=== PATIENT | male | born 1955 | race African-American/Black ===

== ENCOUNTER 2019-11-11 10:02 | Inpatient (IN) | payer OTHER ==
[2019-11-11] MEDS ORDERED: morphine CARPU-JECT 4 MG/1 ML DISP.SYRIN IVPUSH ONE (10:52)
[2019-11-11] MEDS ORDERED: SODIUM CHLORIDE 0.9% 500 ML INFUS.BAG IV ONE (10:52)
[2019-11-11] MEDS ORDERED: morphine SULFATE 4 MG/ML VIAL ONE (11:02)
--- NOTE | 2019-11-11 11:13 | PDOC ---
History of Present Illness - General Chief Complaint: Pain, Acute Stated Complaint: ABD PAIN Time Seen by Provider: 11/11/19 10:15 History Source: Patient Exam Limitations: No Limitations - History of Present Illness Initial Comments: 11/11/19 11:11 64-year-old male history of hypertension, bilateral inguinal hernia repairs over 10 years ago presents complaining of periumbilical pain since 9 AM yesterday. Denies trauma, fever, chills, nausea, vomiting, diarrhea, chest pain, shortness of breath, back pain, urinary complaints, recent travel, recent sick contacts or any other complaints. Reports a small bowel movement yesterday, patient is passing gas. Patient has not taken anything for pain. PMD Dr. Porfirio Cardenas. ROS: as above PE: GENERAL: well-appearing, NAD HEAD: NCAT EYES: Pupils equal, round and reactive to light, sclera anicteric, conjunctiva clear ENT: pharynx: no erythema, no exudate, uvula midline NECK: supple CHEST: nontender RESP: clear, no w/r/r CARDIO: rrr, no m/g/r ABD: +BS, soft, nontender, mild abdominal distention, no rebound, no guarding BACK: no midline spinal ttp, no CVAT EXTREMITIES: Normal range of motion, no edema NEUROLOGICAL: Normal speech, normal gait SKIN: Warm, Dry Is this a multiple visit Asthma Patient?: No Past History - Medical History Allergies/Adverse Reactions: Allergies Allergy/AdvReac Type Severity Reaction Status Date / Time No Known Allergies Allergy Verified 11/11/19 11:14 Home Medications: Ambulatory Orders Aspirin 81 mg PO DAILY 12/13/17 Losartan/Hydrochlorothiazide 12/13/17 Nifedipine [Nifedipine ER] 60 mg PO DAILY 12/13/17 COPD: No - Psycho-Social/Smoking History Smoking History: Never smoked Have you smoked in the past 12 months: No Information on smoking cessation initiated: No - Substance Abuse Hx (Audit-C & DAST Scrn) How often the patient has a drink containing alcohol: Monthly or less Number of drinks the patient has on a typical day: 1 or 2 How often the patient has six or more drinks on one occasion: Less than monthly Score: In Men: 4 or > Positive; In Women: 3 or > Positive: 2 Screen Result (Pos requires Nsg. Audit-10AR): Negative In the last yr the pt used illegal drug/Rx for NonMed reason: No Score: Yes response is considered Positive: 0 Screen Result (Positive result requires Nsg. DAST-10): Negative *Physical Exam - Vital Signs Last Vital Signs Temp Pulse Resp BP Pulse Ox 98.6 F 86 16 176/97 H 99 11/11/19 10:03 11/11/19 10:03 11/11/19 10:03 11/11/19 10:03 11/11/19 10:03 ED Treatment Course - LABORATORY CBC & Chemistry Diagram: 11/11/19 10:55 11/11/19 10:55 - RADIOLOGY Radiology Studies Ordered: Category Date Time Status ABDOMEN & PELVIS CT WITH CONTR [CT] Stat CT Scan 11/11/19 10:52 Ordered Medical Decision Making - Medical Decision Making 11/11/19 11:13 64-year-old male history of hypertension, bilateral inguinal hernia repairs over 10 years ago presents complaining of periumbilical pain since 9 AM yesterday. Denies trauma, fever, chills, nausea, vomiting, diarrhea, chest pain, shortness of breath, back pain, urinary complaints, recent travel, recent sick contacts or any other complaints. Reports a small bowel movement yesterday, patient is passing gas. Patient has not taken anything for pain. PMD Dr. Porfirio Cardenas. labs IVF analgesia CTAP w/con reassess 11/11/19 12:47 Cr 1.5 cancelled CTAP w/con ordered CTAP w/o con - oral contrast only 11/11/19 16:55 CTAP w/con (po contrast only)- Few dilated loops of distal bowel in the right lower quadrant with collapsed terminal ileum identified distally and possible transition point in right upper quadrant. JEANINE Curran translated for patient and (speak Twi) discussed case with Dr. Elfego vinson test ordered cxr, ecg ordered admit to Dr. Simmons (pmd is Dr. Cardenas) Discharge - Discharge Information Problems reviewed: Yes Clinical Impression/Diagnosis: Abdominal pain Qualifiers: Abdominal location: periumbilical Qualified Code(s): R10.33 - Periumbilical pain Condition: Stable - Admission Yes - Follow up/Referral Referrals: Porfirio Cardenas MD [Primary Care Provider] - - Patient Discharge Instructions - Post Discharge Activity
[2019-11-11 11:22] LABS: BASO % 0.3 % (0-2.0); EOS % 0.8 % (0-4.5); HEMATOCRIT 43.4 % (35.4-49); HEMOGLOBIN 14.2 GM/dL (11.7-16.9); LYMPH % 29.5 % (8-40); MCHC 32.6 g/dl (32.0-35.9); MEAN CELL VOLUME 88.9 fl (80-96); MEAN PLT VOLUME 8.4 fl (7.5-11.1); MONO % 7.5 % (3.8-10.2); NEUT % 61.9 % (42.8-82.8); PLATELET COUNT 256 K/MM3 (134-434); RBC 4.88 M/mm3 (4.00-5.60); RDW 13.7 % (11.9-15.9); WHITE BLOOD COUNT 6.4 K/mm3 (4.0-10.0)
[2019-11-11 11:54] LABS: ALBUMIN 4.6 g/dl (3.4-5.0); BLOOD UREA NITROGEN 17.2 mg/dL (7-18); CALCIUM 10.2 mg/dL (8.5-10.1); CREATININE 1.5 mg/dL (0.55-1.3); MAGNESIUM 2.2 mg/dL (1.8-2.4); POTASSIUM 4.3 mmol/L (3.5-5.1); TOT PROT 8.9 g/dl (6.4-8.2)
[2019-11-11] MEDS ORDERED: MORPHINE SULFATE 2 MG/ML VIAL IVPUSH PRN (22:03)
[2019-11-11] MEDS: DEXTROSE 5%-0.45% SALINE 1,000 ML IV SCH (22:30)
[2019-11-12 02:06] VITALS: BMI 32.8
[2019-11-12 08:39] LABS: BASO % 0.3 % (0-2.0); EOS % 1.7 % (0-4.5); HEMATOCRIT 38.5 % (35.4-49); HEMOGLOBIN 12.6 GM/dL (11.7-16.9); MCHC 32.6 g/dl (32.0-35.9); MEAN PLT VOLUME 8.3 fl (7.5-11.1); MONO % 11.6 % (3.8-10.2); NEUT % 48.4 % (42.8-82.8); PLATELET COUNT 222 K/MM3 (134-434); RBC 4.33 M/mm3 (4.00-5.60); RDW 13.6 % (11.9-15.9); WHITE BLOOD COUNT 3.4 K/mm3 (4.0-10.0)
[2019-11-12 09:17] LABS: ALBUMIN 3.7 g/dl (3.4-5.0); BLOOD UREA NITROGEN 13.1 mg/dL (7-18); CALCIUM 9.1 mg/dL (8.5-10.1); POTASSIUM 3.9 mmol/L (3.5-5.1)
[2019-11-12 09:21] LABS: BILIRUBIN,TOTAL 1.2 mg/dL (0.2-1); TOT PROT 7.3 g/dl (6.4-8.2)
[2019-11-12] MEDS: NIFEdipine E.R 60 MG TABLET PO SCH (11:59)
[2019-11-12] MEDS: ENOXAPARIN NA (PORCINE) 40 MG/0.4 ML DISP.SYRIN SQ SCH (11:59)
[2019-11-12] MEDS: ASPIRIN 81 MG CHEWABLE TABLETS PO SCH (11:59)
--- NOTE | 2019-11-12 12:38 | EKG ---
Test Reason : Blood Pressure : / mmHG Vent. Rate : 071 BPM Atrial Rate : 071 BPM P-R Int : 176 ms QRS Dur : 108 ms QT Int : 394 ms P-R-T Axes : 047 -35 061 degrees QTc Int : 428 ms NORMAL SINUS RHYTHM POSSIBLE LEFT ATRIAL ENLARGEMENT LEFT AXIS DEVIATION LEFT VENTRICULAR HYPERTROPHY ABNORMAL ECG NO PREVIOUS ECGS AVAILABLE Confirmed by ACACIA MCINTYRE MD ([id number]) on 11/12/2019 12:37:46 PM Referred By: Confirmed By:ACACIA MCINTYRE MD
--- NOTE | 2019-11-12 15:55 | HP ---
Admitting History and Physical - Primary Care Physician PCP: Francine Simmons - Admission History of Present Illness: 64-year-old male history of hypertension, bilateral inguinal hernia repairs over 10 years ago presents complaining of periumbilical pain since 9 AM yesterday. Denies trauma, fever, chills, nausea, vomiting, diarrhea, chest pain, shortness of breath, back pain, urinary complaints, recent travel, recent sick contacts or any other complaints. Reports a small bowel movement yesterday, patient is passing gas. Patient has not taken anything for pain. PMD Dr. Porfirio Cardenas. - Past Medical History Cardiovascular: Yes: HTN - Past Surgical History Past Surgical History: Yes: Hernia Repair - Smoking History Smoking history: Never smoked Have you smoked in the past 12 months: No Home Medications - Allergies Allergies/Adverse Reactions: Allergies Allergy/AdvReac Type Severity Reaction Status Date / Time No Known Allergies Allergy Verified 11/11/19 11:14 - Home Medications Home Medications: Ambulatory Orders Aspirin 81 mg PO DAILY 12/13/17 Losartan/Hydrochlorothiazide 12/13/17 Nifedipine [Nifedipine ER] 60 mg PO DAILY 12/13/17 Review of Systems - Review of Systems Gastrointestinal: reports: Abdominal Pain Physical Examination Vital Signs: Vital Signs Temperature 98.1 F 11/12/19 07:42 Pulse Rate 64 11/12/19 07:42 Respiratory Rate 20 11/12/19 09:00 Blood Pressure 146/86 11/12/19 07:42 O2 Sat by Pulse Oximetry (%) 99 11/12/19 09:00 Constitutional: Yes: No Distress HENT: Yes: Atraumatic Neck: Yes: Supple Cardiovascular: Yes: Regular Rate and Rhythm Respiratory: Yes: CTA Bilaterally Gastrointestinal: Yes: Normal Bowel Sounds Extremities: Yes: WNL Neurological: Yes: Alert, Oriented Labs: CBC, BMP 11/12/19 08:17 11/12/19 08:17 Imaging - Results Cat Scan: Report Reviewed Problem List - Problems (1) Abdominal pain Assessment/Plan: had big bm ate plantains 3 days ago hungry ..will wait for surgery clearance Code(s): R10.9 - UNSPECIFIED ABDOMINAL PAIN Qualifiers: Abdominal location: periumbilical Qualified Code(s): R10.33 - Periumbilical pain (2) HTN (hypertension) Assessment/Plan: monitor on meds Code(s): I10 - ESSENTIAL (PRIMARY) HYPERTENSION Assessment/Plan Laboratory Tests 11/11/19 11/11/19 11/11/19 10:55 10:55 10:55 WBC 6.4 RBC 4.88 Hgb 14.2 Hct 43.4 D MCV 88.9 MCH 29.0 MCHC 32.6 RDW 13.7 Plt Count 256 MPV 8.4 Absolute Neuts (auto) 3.9 Neutrophils % 61.9 Lymphocytes % 29.5 D Monocytes % 7.5 Eosinophils % 0.8 Basophils % 0.3 Nucleated RBC % 0 Sodium 139 Potassium 4.3 Chloride 106 Carbon Dioxide 27 Anion Gap 6 L BUN 17.2 Creatinine 1.5 H Est GFR (CKD-EPI)AfAm 56.21 Est GFR (CKD-EPI)NonAf 48.50 Random Glucose 104 Lactic Acid 1.3 Calcium 10.2 H Magnesium 2.2 Total Bilirubin 1.0 AST 29 ALT 48 Alkaline Phosphatase 82 Total Protein 8.9 H Albumin 4.6 COVID-19 (PETRA) 11/11/19 11/12/19 11/12/19 17:21 08:17 08:17 WBC 3.4 L RBC 4.33 Hgb 12.6 Hct 38.5 MCV 89.0 MCH 29.0 MCHC 32.6 RDW 13.6 Plt Count 222 MPV 8.3 Absolute Neuts (auto) 1.7 Neutrophils % 48.4 D Lymphocytes % 38.0 D Monocytes % 11.6 H Eosinophils % 1.7 D Basophils % 0.3 Nucleated RBC % 0 Sodium 139 Potassium 3.9 Chloride 106 Carbon Dioxide 26 Anion Gap 7 L BUN 13.1 Creatinine 1.0 Est GFR (CKD-EPI)AfAm 91.78 Est GFR (CKD-EPI)NonAf 79.19 Random Glucose 94 Lactic Acid Calcium 9.1 Magnesium Total Bilirubin 1.2 H AST 23 ALT 34 Alkaline Phosphatase 70 Total Protein 7.3 Albumin 3.7 COVID-19 (PETRA) Not detected Active Medications Generic Name Dose Route Start Last Admin Trade Name Freq PRN Reason Stop Dose Admin Aspirin 81 mg 11/12/19 10:00 11/12/19 11:59 Asa - PO 81 mg DAILY RHINA Administration Enoxaparin Sodium 40 mg 11/12/19 10:00 11/12/19 11:59 Lovenox - SQ 40 mg DAILY RHINA Administration Dextrose/Sodium Chloride 1,000 mls @ 75 mls/hr 11/11/19 22:15 11/11/19 22:30 D5-1/2ns - IV 75 mls/hr ASDIR RHINA Administration Morphine Sulfate 2 mg 11/11/19 22:03 Morphine Sulfate IVPUSH Q6H PRN PAIN LEVEL 6-10 Nifedipine 60 mg 11/12/19 10:00 11/12/19 11:59 Procardia Xl - PO 60 mg DAILY RHINA Administration COVERING FOR DR SIMMONS TODAY
--- NOTE | 2019-11-12 17:43 | PN ---
Progress Note (short form) - Note Progress Note: surgery pt seen and examined. 64m with b/l open inguinal hernia and ventral hernia repair presented with resolved abd pain after eating unripened plantains [address] shows some dilated distal bowel loops only with compressed ti. large bm today. hungry and wants to go home abd- soft, nt, nd, Plan- full liquids. can d/c if tolerates. stay on liquids until Friday. consider outpt colonoscopy.
--- NOTE | 2019-11-12 18:14 | CONS ---
DATE OF CONSULTATION: DATE OF DICTATION: 11/12/2019 REASON FOR CONSULTATION: Small bowel obstruction. This is an emergency room consultation at the request of the emergency room physician. BRIEF HISTORY: This is a 64-year-old male with history of open bilateral inguinal hernia repair as well as an open ventral hernia repair. States about 3 days ago, he had some unripened plantains that were very hard. He then developed some abdominal pain. Because of this he came into the emergency room, where he had a CAT scan of the abdomen, pelvis which showed us a dilated loop of small bowel in the distal small bowel with collapse from ileum beyond it and nondilated bowel proximal to it. The this could be a mechanical obstruction. He was admitted to the hospital without nasogastric decompression. Today he has had large bowel movement. His symptoms have resolved. PAST MEDICAL HISTORY: Significant for hypertension. PAST SURGICAL HISTORY: As in HPI. SOCIAL HISTORY: Negative for tobacco. ALLERGIES: No known drug allergies. HOME MEDICATIONS: Include: 1. Aspirin. 2. Losartan. 3. Hydrochlorothiazide. 4. Nifedipine. REVIEW OF SYSTEMS: General: Denies fatigue or malaise. Cardiac: Denies chest pain or palpitations. Respiratory: Denies shortness of breath. Gastrointestinal: As in HPI. Currently asymptomatic. Genitourinary: Denies dysuria. Musculoskeletal: Denies joint pain. Psychiatric: Denies anxiety, depression, or hearing voices. PHYSICAL EXAMINATION: General: This is an obese 64-year-old male in no distress. He is afebrile. HEENT: Head is normocephalic. Sclerae anicteric. Neck: Supple. Chest: Clear. Abdomen: Soft. Nontender. He has a small scar under his umbilicus, and he has 2 inguinal hernia scars. He has no obvious masses. He is nontender, not distended. Extremities: No edema. LABORATORY: Review of his laboratory: His white blood cell count is 3.4, hemoglobin is 12, chemistries are unremarkable. COVID test is negative. His CAT scan is as stated in the HPI. He had an abdominal x-ray done today which has not been read by the radiology department. There appears to be some gas-filled colon noted as well as some dilated small bowel. ASSESSMENT: A 64-year-old male with limited surgical history who presents with abdominal pain that is now resolved after eating unripened plantains. Perhaps he had a food impaction in his distal small bowel. The fact that his small bowel was dilated but not proximally does not suggest a complete obstruction or necessarily a mechanical obstruction at all. He has had a large bowel movement. His symptoms have resolved. At this point would not recommend surgical exploration. Will put the patient on a full liquid diet. If he tolerates, he can be discharged. He should stay on liquids until Friday, at which point he can advance his diet. His last colonoscopy was more than 5 years ago, and I recommend he be evaluated for an elective colonoscopy. As long as the patient remains well, no indication for surgery. DO BRE PALMA/[id number]
--- NOTE | 2019-11-12 18:59 | CON.GI ---
Consult Consult Specialty:: GI - History of Present Illness History of Present Illness: 64 y/o male with PMH GB polyp was dooing well until yesterday when he developed periumbilical pain radiating to right lower quadrant. He denies diarrhea, melena and rectala bleeding. CT revealed dialted loops in right lower quadrant. Etiology unclear. Passed flatus today. - Past Medical History Cardio/Vascular: Yes: HTN - Past Surgical History Past Surgical History: Yes: Hernia Repair - Smoking History Smoking history: Never smoked Have you smoked in the past 12 months: No Home Medications - Allergies Allergies/Adverse Reactions: Allergies Allergy/AdvReac Type Severity Reaction Status Date / Time No Known Allergies Allergy Verified 11/11/19 11:14 - Home Medications Home Medications: Ambulatory Orders Aspirin 81 mg PO DAILY 12/13/17 Losartan/Hydrochlorothiazide 12/13/17 Nifedipine [Nifedipine ER] 60 mg PO DAILY 12/13/17 Physical Exam-GI Vital Signs: Vital Signs Temperature 99.5 F 11/12/19 17:13 Pulse Rate 69 11/12/19 17:13 Respiratory Rate 20 11/12/19 17:13 Blood Pressure 141/80 11/12/19 17:13 O2 Sat by Pulse Oximetry (%) 95 11/12/19 17:13 Constitutional: Yes: Well Nourished, Poor Hygeine Eyes: Yes: Occular Prosthesis Neck: Yes: Supple, Tenderness Respiratory: Yes: CTA Bilaterally ...Palpate: Yes: Soft, Tenderness (rlq tenderness). No: Firm/Rigid, Guarding, Hepatomegaly, Mass, Pulsatile Mass, Splenomegaly Labs: CBC, BMP 11/12/19 08:17 11/12/19 08:17 CBC,CMP WBC 3.4 K/mm3 (4.0-10.0) L 11/12/19 08:17 RBC 4.33 M/mm3 (4.00-5.60) 11/12/19 08:17 Hgb 12.6 GM/dL (11.7-16.9) 11/12/19 08:17 Hct 38.5 % (35.4-49) 11/12/19 08:17 MCV 89.0 fl (80-96) 11/12/19 08:17 MCH 29.0 pg (25.7-33.7) 11/12/19 08:17 MCHC 32.6 g/dl (32.0-35.9) 11/12/19 08:17 RDW 13.6 % (11.9-15.9) 11/12/19 08:17 Plt Count 222 K/MM3 (134-434) 11/12/19 08:17 MPV 8.3 fl (7.5-11.1) 11/12/19 08:17 Absolute Neuts (auto) 1.7 K/mm3 (1.5-8.0) 11/12/19 08:17 Neutrophils % 48.4 % (42.8-82.8) D 11/12/19 08:17 Lymphocytes % 38.0 % (8-40) D 11/12/19 08:17 Monocytes % 11.6 % (3.8-10.2) H 11/12/19 08:17 Eosinophils % 1.7 % (0-4.5) D 11/12/19 08:17 Basophils % 0.3 % (0-2.0) 11/12/19 08:17 Nucleated RBC % 0 % (0-0) 11/12/19 08:17 Sodium 139 mmol/L (136-145) 11/12/19 08:17 Potassium 3.9 mmol/L (3.5-5.1) 11/12/19 08:17 Chloride 106 mmol/L (98-107) 11/12/19 08:17 Carbon Dioxide 26 mmol/L (21-32) 11/12/19 08:17 Anion Gap 7 MMOL/L (8-16) L 11/12/19 08:17 BUN 13.1 mg/dL (7-18) 11/12/19 08:17 Creatinine 1.0 mg/dL (0.55-1.3) 11/12/19 08:17 Est GFR (CKD-EPI)AfAm 91.78 11/12/19 08:17 Est GFR (CKD-EPI)NonAf 79.19 11/12/19 08:17 Random Glucose 94 mg/dL (74-106) 11/12/19 08:17 Lactic Acid 1.3 mmol/L (0.4-2.0) 11/11/19 10:55 Calcium 9.1 mg/dL (8.5-10.1) 11/12/19 08:17 Magnesium 2.2 mg/dL (1.8-2.4) 11/11/19 10:55 Total Bilirubin 1.2 mg/dL (0.2-1) H 11/12/19 08:17 AST 23 U/L (15-37) 11/12/19 08:17 ALT 34 U/L (13-61) 11/12/19 08:17 Alkaline Phosphatase 70 U/L (45-117) 11/12/19 08:17 Total Protein 7.3 g/dl (6.4-8.2) 11/12/19 08:17 Albumin 3.7 g/dl (3.4-5.0) 11/12/19 08:17 Imaging - Results Chest X-ray: Report Reviewed Problem List - Problems (1) RLQ abdominal pain Assessment/Plan: associated with low grade temps r/o ocecal diverticultis R> ceftriaxone 1 gram Flagyl clears in am Code(s): R10.31 - RIGHT LOWER QUADRANT PAIN
[2019-11-12] MEDS ORDERED: cefTRIAXone SODIUM 1 GM VIAL ONE (19:38)
[2019-11-12] MEDS ORDERED: DEXTROSE 5%-WATER - 50 ML IVPB ONE (19:38)
[2019-11-12] MEDS: CEFTRIAXONE 1 GM in DEXTROSE 5%-WATER - 50 ML IVPB SCH (19:48)
[2019-11-13] MEDS: DEXTROSE 5%-0.45% SALINE 1,000 ML IV SCH ×2 (01:23→09:43)
--- NOTE | 2019-11-13 07:50 | PN.GI ---
GI Progress Note Subjective: denies any abdominal pain / n/v tolerated liquid diet - Objective Vital Signs: Vital Signs Temperature 98.5 F 11/13/19 06:35 Pulse Rate 74 11/13/19 06:35 Respiratory Rate 18 11/13/19 06:35 Blood Pressure 151/85 11/13/19 06:35 O2 Sat by Pulse Oximetry (%) 96 11/13/19 06:35 Constitutional: Well Nourished, No Distress, Calm Eyes: Yes: WNL HENT: Yes: WNL Neck: Yes: WNL Cardiovascular: Yes: WNL Respiratory: Yes: WNL, Regular, CTA Bilaterally ...Auscultate: Yes: Normoactive Bowel Sounds Extremities: Yes: WNL Edema: No Labs: CBC, BMP 11/12/19 08:17 11/12/19 08:17 Problem List - Problems (1) Abdominal pain Assessment/Plan: ct can reviewed ? resolving sbo ? c/w clear liquid diet ; if continues to improve advance to full liquid diet later today surgery f/u Code(s): R10.9 - UNSPECIFIED ABDOMINAL PAIN Qualifiers: Abdominal location: periumbilical Qualified Code(s): R10.33 - Periumbilical pain
[2019-11-13] MEDS ORDERED: cefTRIAXone SODIUM 1 GM VIAL ONE (09:38)
[2019-11-13] MEDS ORDERED: DEXTROSE 5%-WATER - 50 ML IVPB ONE (09:38)
[2019-11-13] MEDS: ENOXAPARIN NA (PORCINE) 40 MG/0.4 ML DISP.SYRIN SQ SCH (09:44)
[2019-11-13] MEDS: NIFEdipine E.R 60 MG TABLET PO SCH (09:46)
[2019-11-13] MEDS: ASPIRIN 81 MG CHEWABLE TABLETS PO SCH (09:46)
[2019-11-13] MEDS: CEFTRIAXONE 1 GM in DEXTROSE 5%-WATER - 50 ML IVPB SCH (09:46)
[2019-11-13 10:31] VITALS: BP 159/92; PULSE 68; TEMP 97.5
--- NOTE | 2019-11-13 10:34 | PN ---
Progress Note (short form) - Note Progress Note: surgery pt seen and examined. tolerating liquids. abd- soft, nt Plan- surgically stable for d/c on liquids till Friday. no surgical f/u needed.
== END 2019-11-13 14:36 | disposition home or self-care (01) | DRG 247 ==
LOC: JER 10:02 → JERBED 16:45 → J8W 11-12 01:25
PROVIDERS: ADMIT Internal Medicine; ATTEND Internal Medicine
DX: K56.609 Unspecified intestinal obstruction, unspecified as to partial versus complete obstruction (principal); R10.31 Right lower quadrant pain; I10 Essential (primary) hypertension
CPT/HCPCS: 36415; 71046-TC-FY; 74019-TC-FY; 74176-TC; 80053; 83605; 83735; 85025; 93005; 93010; 99285-25; U0003

== ENCOUNTER 2019-11-24 16:11 | Inpatient (IN) | payer OTHER ==
--- NOTE | 2019-11-24 16:21 | PDOC ---
Rapid Medical Evaluation Chief Complaint: Pain Time Seen by Provider: 11/24/19 16:13 Medical Evaluation: Allergies Allergy/AdvReac Type Severity Reaction Status Date / Time No Known Allergies Allergy Verified 11/24/19 16:16 Vital Signs Temp Pulse Resp BP Pulse Ox 98.1 F 68 19 166/136 H 99 11/24/19 16:14 11/24/19 16:14 11/24/19 16:14 11/24/19 16:14 11/24/19 16:14 11/24/19 16:19 CC: no bm since yesterday, + abd distention and very gassy, states was here 2 weeks ago and admitted for the same Exam" + tympany, bs + + distention, elevated BP Plan: ct with po/iv contrast, labs, urine npo Discharge Disposition - Diagnosis Abdominal pain - Referrals - Patient Instructions - Post Discharge Activity
--- NOTE | 2019-11-24 16:23 | PDOC ---
History of Present Illness - General Chief Complaint: Pain Stated Complaint: ABD PAIN/ CONSTIPATION Time Seen by Provider: 11/24/19 16:13 - History of Present Illness Initial Comments: 64 YOM h/o htn, hld, complaining of abdominal pain since yesterday. Patient reports that pain is located diffusely throughout abdomen, 10/10, sharp in quality, since 6pm yesterday after eating, nothing better or worse, has not taken anything. Was here last week for similar sx, received CT abdomen w/ contrast, showed low grade SBO, patient was able to tolerate PO, pain resolved, was able to pass stool and flatus and was dcd. Now returning with same pain. Last BP yesterday morning at 7am, has not passed flatus since this time. No blood in stool, pain or blood with urination, no CP, SOB, NVD, fever, chills, recent sick contacts or recent travel. Constitutional: No Weight Change, No Fever, No Chills, No Night Sweats, No Fatigue, No Malaise ENT/Mouth: No Hearing Changes, No Ear Pain, No Nasal Congestion, No Sinus Pain, No Hoarseness, No sore throat, No Rhinorrhea, No Swallowing Difficulty Eyes: No Eye Pain, No Swelling, No Redness, No Foreign Body, No Discharge, No Vision Changes Cardiovascular: No Chest Pain, No SOB, No PND, No Dyspnea on Exertion, No Orthopnea, No Claudication, No Edema, No Palpitations Respiratory: No Cough, No Sputum, No Wheezing, No Smoke Exposure, No Dyspnea Gastrointestinal: No Nausea, No Vomiting, No Diarrhea, No Constipation, + Pain, No Heartburn, No Anorexia, No Dysphagia, No Hematochezia, No Melena, No Flatulence, No Jaundice Genitourinary: No Dysmenorrhea, No DUB, No Dyspareunia, No Dysuria, No Urinary Frequency, No Hematuria, No Urinary Incontinence, No Urgency, No Flank Pain, No Urinary Flow Changes, No Hesitancy Musculoskeletal: No Arthralgias, No Myalgias, No Joint Swelling, No Joint Stiffness, No Back Pain, No Neck Pain, No Injury History Skin: No Skin Lesions, No Pruritis, No Hair Changes, No Breast/Skin Changes, No Nipple Discharge Neuro: No Weakness, No Numbness, No Paresthesias, No Loss of Consciousness, No Syncope, No Dizziness, No Headache, No Coordination Changes, No Recent Falls Psych: No Anxiety/Panic, No Depression, No Insomnia, No Personality Changes, No Delusions, No Rumination, No SI/HI/AH/VH, No Social Issues, No Memory Changes, No Violence/Abuse Hx., No Eating Concerns Heme/Lymph: No Bruising, No Bleeding, No Transfusions History, No Lymphadenopathy Endocrine: No Polyuria, No Polydipsia, No Temperature Intolerance 11/24/19 17:06 Past History - Medical History Allergies/Adverse Reactions: Allergies Allergy/AdvReac Type Severity Reaction Status Date / Time No Known Allergies Allergy Verified 11/24/19 16:16 Home Medications: Ambulatory Orders Aspirin 81 mg PO DAILY 12/13/17 Losartan/Hydrochlorothiazide 12/13/17 Nifedipine [Nifedipine ER] 60 mg PO DAILY 12/13/17 COPD: No GI Disorders: (hernia) HTN: Yes - Surgical History Abdominal Surgery: Yes (Hernia) - Psycho-Social/Smoking History Smoking History: Never smoked Have you smoked in the past 12 months: No Information on smoking cessation initiated: Yes - Substance Abuse Hx (Audit-C & DAST Scrn) How often the patient has a drink containing alcohol: Never Score: In Men: 4 or > Positive; In Women: 3 or > Positive: 0 Screen Result (Pos requires Nsg. Audit-10AR): Negative In the last yr the pt used illegal drug/Rx for NonMed reason: No Score: Yes response is considered Positive: 0 Screen Result (Positive result requires Nsg. DAST-10): Negative *Physical Exam - Vital Signs Last Vital Signs Temp Pulse Resp BP Pulse Ox 98.1 F 68 19 166/136 H 99 11/24/19 16:14 11/24/19 16:14 11/24/19 16:14 11/24/19 16:14 11/24/19 16:14 ED Treatment Course - LABORATORY CBC & Chemistry Diagram: 11/25/19 06:45 11/25/19 06:45 Medical Decision Making - Medical Decision Making 64 YOM h/o htn, hld, recent partial bowel obstruction presents for abdominal pain - vitals wnl - exam shows protuberant abdomen - CBC, CMP, Lactate, UA, CT w/ contrast reassess: - Patient began vomiting 1.5 hours after drinking oral contrast - emesis brownish in color - placed NG tube, went in on first attempt, advanced 70 cms, immediate return of 300cc fluid 11/24/19 18:38 11/24/19 20:34 patient cr 1.5 patient given 2L ringers lactate for hydration prior to contrast CT Plan to hydrate post study 11/24/19 21:55 - CT reads increased distal small bowel obstruction when compared to exam on 11/11/2019 w/ possible transition zone in RUQ - Patient signed out to night team 11/24/19 21:56 Discharge - Discharge Information Problems reviewed: Yes Clinical Impression/Diagnosis: SBO (small bowel obstruction) Abdominal pain Qualifiers: Abdominal location: upper abdomen, unspecified Qualified Code(s): R10.10 - Upper abdominal pain, unspecified - Follow up/Referral - Patient Discharge Instructions - Post Discharge Activity
[2019-11-24 17:51] LABS: BASO % 0.3 % (0-2.0); EOS % 0.3 % (0-4.5); HEMATOCRIT 42.4 % (35.4-49); HEMOGLOBIN 14.1 GM/dL (11.7-16.9); LYMPH % 13.2 % (8-40); MCH 29.1 pg (25.7-33.7); MCHC 33.2 g/dl (32.0-35.9); MEAN CELL VOLUME 87.5 fl (80-96); MONO % 5.5 % (3.8-10.2); NEUT % 80.7 % (42.8-82.8); PLATELET COUNT 273 K/MM3 (134-434); RBC 4.85 M/mm3 (4.00-5.60); RDW 13.5 % (11.9-15.9)
[2019-11-24 17:58] LABS: INR 1.02 (0.83-1.09)
[2019-11-24 18:01] LABS: ACTIVATED PTT 29.9 SECONDS (25.2-36.5)
[2019-11-24] MEDS ORDERED: PANTOPRAZOLE SODIUM 40 MG VIAL ONE ×2 (18:06→19:54)
[2019-11-24] MEDS ORDERED: ONDANSETRON 4 MG/2 ML VIAL IVPUSH ONE (18:07)
[2019-11-24] MEDS ORDERED: PANTOPRAZOLE SODIUM 40 MG VIAL IVPUSH ONE ×2 (18:07→19:46)
[2019-11-24] MEDS ORDERED: LIDOCAINE HCL 2% JELLY 10 ML CARTRIDGE UR ONE (18:08)
[2019-11-24] MEDS ORDERED: LIDOCAINE VISCOUS 2% ORAL/TOP 100 ML BOTTLE MM ONE (18:13)
--- NOTE | 2019-11-24 18:20 | PDOC ---
Documentation entered by Shira Soriano SCRIBE, acting as scribe for Berta Villa MD. Berta Villa MD: This documentation has been prepared by the Bo zayas Lincy, SCRIBE, under my direction and personally reviewed by me in its entirety. I confirm that the documentation accurately reflects all work, treatment, procedures, and medical decision making performed by me. Attending Attestation - Resident Resident Name: DaliaChidi - ED Attending Attestation I have performed the following: I have examined & evaluated the patient, The case was reviewed & discussed with the resident, I agree w/resident's findings & plan, Exceptions are as noted - HPI HPI: 11/24/19 18:12 64 yo male h/o htn, bilat inguinal hernia repair, recently admitted for bowel obstruction which was managed conservatively, and resolved, earlier this month, here today with c/o abd pain, constipation, x 1 day . c/o right sided abd pain, today noted to be periumbilical. no h/o other abd surgeries. denies dark stool, no melena, no h/o prior cirrhosis or gi bleeds. no f/c no cp no sob. - Physicial Exam PE: 11/24/19 18:16 awake alert lungs clear bilat heart rrr no mrg abd soft mild distended, nontender. no noted hernia. ext wwp. no edema. alert oriented x 3. - Medical Decision Making 11/24/19 18:17 64 yo male h/o htn , prior abd surgery, questionable sbo recently, admitted for sbo managed conservatively, here today c/o constipation abd pain. differential appendictiis recurrent obstruction, gastritis, other infection such as uti, plan ct a/p labs pt ptt. type and screen. pt in department awaiting cta/p given po contgrast. shortly after large amount of bloody, coffee ground emesis. given protonix 40 mg , protonix gtt. ct a/p changed to iv contrast only as unable to tolerate oral contrast. Discharge - Discharge Information Problems reviewed: Yes Clinical Impression/Diagnosis: Abdominal pain - Follow up/Referral Referrals: Porfirio Cardenas MD [Primary Care Provider] - - Patient Discharge Instructions - Post Discharge Activity
[2019-11-24 18:22] LABS: ALBUMIN 4.8 g/dl (3.4-5.0); CALCIUM 10.5 mg/dL (8.5-10.1); CREATININE 1.5 mg/dL (0.55-1.3); MAGNESIUM 2.3 mg/dL (1.8-2.4); TOT PROT 9.2 g/dl (6.4-8.2)
[2019-11-24] MEDS ORDERED: LIDOCAINE HCL 2% JELLY 10 ML CARTRIDGE ONE (18:24)
[2019-11-24] MEDS ORDERED: LACTATED RINGERS SOLUTION 1000 ML INFUS.BAG IV ONE ×3 (18:42→18:45)
[2019-11-24] MEDS ORDERED: ACETAMINOPHEN 1000 MG/100 ML VIAL (NON FORMULARY) IVPB ONE (18:47)
[2019-11-24] MEDS ORDERED: ACETAMINOPHEN INJECTION 100 ML IVPB ONE (18:56)
[2019-11-24 19:15] LABS: EPI CELLS 3 /uL (0-25.1); HYALINE CASTS 1 /uL (0-3.1); URINE APPEARANCE CLEAR; URINE BACTERIA 3 /uL (0-1359); URINE BILIRUBIN 2+ (NEGATIVE); URINE COLOR DK YELLOW; URINE GLUCOSE (UA) NEGATIVE (NEGATIVE); URINE KETONE 1+ (NEGATIVE); URINE LEUK ESTERASE NEGATIVE (NEGATIVE); URINE NITRITE NEGATIVE (NEGATIVE); URINE PROTEIN 1+ (NEGATIVE); URINE RBC 12 /uL (0-23.9); URINE WBC 3 /uL (0-25.8)
[2019-11-24] MEDS: PANTOPRAZOLE SODIUM 80 MG in SODIUM CHLORIDE 100 ML IVPB SCH (20:23)
--- NOTE | 2019-11-24 22:16 | PDOC ---
*Physical Exam - Vital Signs Last Vital Signs Temp Pulse Resp BP Pulse Ox 97.9 F 69 18 167/88 96 11/24/19 19:20 11/24/19 19:20 11/24/19 19:20 11/24/19 19:20 11/24/19 19:20 - Physical Exam 11/24/19 22:13 64M low grade SBO last week - resolved now back w / ABD pain. CT shows larger SBO, transition point @ RUQ. ng tube in. No WBC count. BM yesterday. no flatus. coffee ground emesis after PO contrast. - dry scan now shows increased grade (high grade) SBO. transition point at RUQ. needs surg consult + admission 11/24/19 22:23 ED Treatment Course - LABORATORY CBC & Chemistry Diagram: 11/24/19 17:20 11/24/19 17:20 - ADDITIONAL ORDERS Additional order review: Laboratory Results 11/24/19 11/24/19 11/24/19 18:45 18:25 17:20 PT with INR INR PTT (Actin FS) Sodium Potassium Chloride Carbon Dioxide Anion Gap BUN Creatinine Est GFR (CKD-EPI)AfAm Est GFR (CKD-EPI)NonAf Random Glucose Lactic Acid 1.4 Calcium Magnesium Total Bilirubin AST ALT Alkaline Phosphatase Total Protein Albumin Lipase Urine Color Dk yellow Urine Appearance Clear Urine pH 5.0 Ur Specific [place] 1.031 Urine Protein 1+ H Urine Glucose (UA) Negative Urine Ketones 1+ H Urine Blood Negative Urine Nitrite Negative Urine Bilirubin 2+ H Urine Urobilinogen 1.0 Ur Leukocyte Esterase Negative Urine WBC (Auto) 3 Urine RBC (Auto) 12 Urine Casts (Auto) 1 U Epithel Cells (Auto) 3 Urine Bacteria (Auto) 3 Blood Type O POSITIVE Antibody Screen Negative 11/24/19 11/24/19 17:20 17:20 PT with INR 12.00 INR 1.02 PTT (Actin FS) 29.9 Sodium 140 Potassium 4.0 Chloride 105 Carbon Dioxide 26 Anion Gap 10 BUN 21.0 H Creatinine 1.5 H Est GFR (CKD-EPI)AfAm 56.21 Est GFR (CKD-EPI)NonAf 48.50 Random Glucose 117 H Lactic Acid Calcium 10.5 H Magnesium 2.3 Total Bilirubin 1.0 AST 22 ALT 40 Alkaline Phosphatase 92 Total Protein 9.2 H Albumin 4.8 Lipase 146 Urine Color Urine Appearance Urine pH Ur Specific [place] Urine Protein Urine Glucose (UA) Urine Ketones Urine Blood Urine Nitrite Urine Bilirubin Urine Urobilinogen Ur Leukocyte Esterase Urine WBC (Auto) Urine RBC (Auto) Urine Casts (Auto) U Epithel Cells (Auto) Urine Bacteria (Auto) Blood Type Antibody Screen 11/24/19 17:20 RBC 4.85 MCV 87.5 MCHC 33.2 RDW 13.5 MPV 9.0 Neutrophils % 80.7 D Lymphocytes % 13.2 D Monocytes % 5.5 Eosinophils % 0.3 D Basophils % 0.3 - Medications Given in the ED: ED Medications Discontinued Medications Generic Name Dose Route Start Last Admin Trade Name Freq PRN Reason Stop Dose Admin Acetaminophen 1,000 mg 11/24/19 18:47 11/24/19 18:54 Ofirmev Injection - IVPB 11/24/19 18:48 1,000 mg ONCE ONE Administration Lactated Ringer's 1,000 ml 11/24/19 18:42 11/24/19 19:02 Lactated Ringers Solution IV 11/24/19 18:43 Not Given ONCE ONE Lactated Ringer's 2,000 ml 11/24/19 18:45 11/24/19 18:54 Lactated Ringers Solution IV 11/24/19 18:46 2,000 ml NOW ONE Administration Lactated Ringer's 2,000 ml 11/24/19 18:45 11/24/19 19:02 Lactated Ringers Solution IV 11/24/19 18:46 Not Given NOW ONE Lidocaine HCl 1 ml 11/24/19 18:08 11/24/19 18:34 Xylocaine 2% Uro-Jet UR 11/24/19 18:09 1 ml ONCE ONE Administration Lidocaine HCl 15 ml 11/24/19 18:13 11/24/19 18:35 Xylocaine 2% Viscous MM 11/24/19 18:14 Not Given ONCE ONE Ondansetron HCl 4 mg 11/24/19 18:07 11/24/19 18:18 Zofran Injection IVPUSH 11/24/19 18:08 4 mg ONCE ONE Administration Pantoprazole Sodium 40 mg 11/24/19 18:07 11/24/19 18:18 Protonix Iv IVPUSH 11/24/19 18:08 40 mg ONCE ONE Administration Pantoprazole Sodium 40 mg 11/24/19 19:46 11/24/19 20:10 Protonix Iv IVPUSH 11/24/19 19:47 40 mg ONCE ONE Administration Medical Decision Making - Medical Decision Making 11/25/19 00:[address] Marie for consult (on-call surgeon). -> He requested us to call Dr. Telles (the MD who saw the patient during last admission) -> We called Elfego's office -> no answer and not taking msgs. -> Dr. Simmons called for transition of care and requested we call Dr. Navarrete (Gen Surgeon for consult) -> We called Dr. Navarrete's office (closed until further notice due to COVID-19) -> called Dr. Navarrete's cell phone -> no answer -> left message with request for callback due to patient w/ SBO. Discharge - Discharge Information Problems reviewed: Yes Clinical Impression/Diagnosis: SBO (small bowel obstruction) Abdominal pain Qualifiers: Abdominal location: upper abdomen, unspecified Qualified Code(s): R10.10 - Upper abdominal pain, unspecified - Admission Yes - Follow up/Referral - Patient Discharge Instructions - Post Discharge Activity
[2019-11-25] MEDS ORDERED: ACETAMINOPHEN 1000 MG/100 ML VIAL (NON FORMULARY) IVPB PRN (00:43)
[2019-11-25] MEDS ORDERED: ONDANSETRON 4 MG/2 ML VIAL IVPUSH PRN (00:44)
[2019-11-25] MEDS: LACTATED RINGERS SOLUTION 1,000 ML/1,000 ML INFUS.BAG IV SCH ×2 (01:00→15:30)
[2019-11-25] MEDS ORDERED: LIDOCAINE VISCOUS 2% ORAL/TOP 20 ML UNIT-DOSE CUP ONE (01:55)
[2019-11-25] MEDS ORDERED: PIPERACILLIN/TAZOB 3.375 GM 3.375 GM/50 ML BAG IVPB ONE (01:55)
[2019-11-25] MEDS ORDERED: PIPERACILLIN/TAZOB 3.375 GM 3.375 GM in DEXTROSE 5%-WATER - 50 ML IVPB SCH (02:00)
[2019-11-25] MEDS ORDERED: LIDOCAINE VISCOUS 2% ORAL/TOP 20 ML UNIT-DOSE CUP MM ONE (04:06)
[2019-11-25 04:49] VITALS: BMI 30.1
[2019-11-25] MEDS: PANTOPRAZOLE SODIUM 80 MG in SODIUM CHLORIDE 100 ML IVPB SCH ×3 (07:05→17:05)
[2019-11-25 07:28] LABS: BASO % 0.5 % (0-2.0); HEMATOCRIT 38.6 % (35.4-49); HEMOGLOBIN 12.8 GM/dL (11.7-16.9); MCH 29.2 pg (25.7-33.7); MCHC 33.1 g/dl (32.0-35.9); MEAN CELL VOLUME 88.3 fl (80-96); MEAN PLT VOLUME 9.2 fl (7.5-11.1); MONO % 9.3 % (3.8-10.2); NEUT % 67.2 % (42.8-82.8); PLATELET COUNT 222 K/MM3 (134-434); RBC 4.38 M/mm3 (4.00-5.60); RDW 13.5 % (11.9-15.9); WHITE BLOOD COUNT 6.5 K/mm3 (4.0-10.0)
--- OUTSIDE RECORDS SUMMARY | 2019-11-25 07:33 | XMS ---
:1955 Author Organization [facility] Support Name Relationship Address Phone UE, UNEMPLOYED Unavailable Unavailable Unavailable UE Unavailable Unavailable Unavailable VICENTA BINGHAM [address] [facility] [phone] [place] [address] AGYINJUSTUS SON [address] [place] [address] AGYIN, JUSTUS Child [address] [facility] [place] [address] Re-disclosure Warning The records that you are about to access may contain information from federally- assisted alcohol or drug abuse programs. If such information is present, then the following federally mandated warning applies: This information has been disclosed to you from records protected by federal confidentiality rules (42 CFR part 2). The federal rules prohibit you from making any further disclosure of this information unless further disclosure is expressly permitted by the written consent of the person to whom it pertains or as otherwise permitted by 42 CFR part 2. A general authorization for the release of medical or other information is NOT sufficient for this purpose. The Federal rules restrict any use of the information to criminally investigate or prosecute any alcohol or drug abuse patient.The records that you are about to access may contain highly sensitive health information, the redisclosure of which is protected by Article 27-F of the [facility] Public Health law. If you continue you may haveaccess to information: Regarding HIV / AIDS; Provided by facilities licensed or operated by the [facility] Office of Mental Health; or Provided by the [facility] Office for People With Developmental Disabilities. If such information is present, then the following [facility] mandated warning applies: This information has been disclosed to you from confidential records which are protected by state law. State law prohibits you from making any further disclosure of this information without the specific written consent of the person to whom it pertains, or as otherwise permitted by law. Any unauthorized further disclosure in violation of state law may result in a fine or skilled nursing sentence or both. A general authorization for the release of medical or other information is NOT sufficient authorization for further disclosure. Insurance Providers Payer name Policy type Policy ID Covered Covered constitution party's Policy P olya / Coverage constitution party ID relationship to [employer] Inf ormation type medley [employer] [id number] SP [id number] [employer]ITY [id number] SP [id number] EXCHANGE Results ID Date Data Source [id number] 11/11/2019 05:21:00 PM EDT [facility] Name Value Range Interpretation Description Data Sup porting Code Source(s) Document(s ) SARS [facility] coronavirus 2 RNA This lab was ordered by [facility] and reported by [email or web address]. ID Date Data Source [id number] 08/26/2019 12:00:00 AM EDT [facility] Name Value Range Interpretation Code Description Data Rachel rce(s) Supporting Document(s ) 2019-nCoV [facility] RNA XXX PETRA+probe- Imp This lab was ordered by [facility] and reported by [email or web address]. Procedure
[2019-11-25 08:05] LABS: ALBUMIN 3.8 g/dl (3.4-5.0); BILIRUBIN,TOTAL 1.2 mg/dL (0.2-1); BLOOD UREA NITROGEN 15.1 mg/dL (7-18); CALCIUM 9.1 mg/dL (8.5-10.1); CREATININE 1.2 mg/dL (0.55-1.3); POTASSIUM 3.7 mmol/L (3.5-5.1); TOT PROT 7.5 g/dl (6.4-8.2)
[2019-11-25] MEDS ORDERED: PIPERACILLIN/TAZOBACTAM 3.375 GM VIAL IVPB ONE ×2 (08:17→16:39)
[2019-11-25] MEDS ORDERED: DEXTROSE 5%-WATER - 50 ML IVPB ONE ×2 (08:18→16:39)
--- NOTE | 2019-11-25 08:18 | CON.ID ---
Consult Consult Specialty:: infectious diseases Referred by:: dr saha Reason for Consultation:: sbo - History of Present Illness Chief Complaint: abd pain, History of Present Illness: 64 YOM h/o htn, hld, complaining of abdominal pain since yesterday. Patient reports that pain is located diffusely throughout abdomen, 10/10, sharp in quality, since 6pm yesterday after eating, nothing better or worse, has not taken anything. Was here last week for similar sx, received CT abdomen w/ contrast, showed low grade SBO, patient was able to tolerate PO, pain resolved, was able to pass stool and flatus and was dcd. Now returning with same pain. Last BP yesterday morning at 7am, has not passed flatus since this time. No blood in stool, pain or blood with urination, no CP, SOB, NVD, fever, chills, recent sick contacts or recent travel. was admitted and ng tube was placed patient feels much better now - History Source History Provided By: Patient Limitations to Obtaining History: No Limitations - Past Medical History Cardio/Vascular: Yes: HTN - Past Surgical History Past Surgical History: Yes: Hernia Repair - Smoking History Smoking history: Never smoked Have you smoked in the past 12 months: No Home Medications - Allergies Allergies/Adverse Reactions: Allergies Allergy/AdvReac Type Severity Reaction Status Date / Time No Known Allergies Allergy Verified 11/24/19 16:16 - Home Medications Home Medications: Ambulatory Orders Aspirin 81 mg PO DAILY 12/13/17 Losartan/Hydrochlorothiazide 12/13/17 Nifedipine [Nifedipine ER] 60 mg PO DAILY 12/13/17 Review of Systems - Review of Systems Constitutional: reports: No Symptoms Eyes: reports: No Symptoms HENT: reports: No Symptoms Neck: reports: No Symptoms Cardiovascular: reports: No Symptoms Respiratory: reports: No Symptoms Gastrointestinal: reports: Abdominal Pain, Bloating, Other Genitourinary: reports: No Symptoms Musculoskeletal: reports: No Symptoms Integumentary: reports: No Symptoms Neurological: reports: No Symptoms Endocrine: reports: No Symptoms Hematology/Lymphatic: reports: No Symptoms Psychiatric: reports: No Symptoms Physical Exam Vital Signs: Vital Signs Temperature 97.8 F 11/25/19 03:20 Pulse Rate 60 11/25/19 03:20 Respiratory Rate 17 11/25/19 04:50 Blood Pressure 165/88 11/25/19 03:20 O2 Sat by Pulse Oximetry (%) 99 11/25/19 04:50 Constitutional: Yes: Well Nourished, Calm, Mild Distress Eyes: Yes: Conjunctiva Clear, EOM Intact HENT: Yes: Atraumatic, Normocephalic Neck: Yes: Supple, Trachea Midline Cardiovascular: Yes: Regular Rate and Rhythm Respiratory: Yes: Regular, CTA Bilaterally Gastrointestinal: Yes: Soft, Distention, Other (absent bowel sounds,ng tube in place) Musculoskeletal: Yes: WNL Extremities: Yes: WNL Neurological: Yes: Alert, Oriented Psychiatric: Yes: Alert, Oriented Labs: CBC, BMP 11/25/19 06:45 11/25/19 06:45 Imaging - Results Chest X-ray: Report Reviewed, Image Reviewed Cat Scan: Report Reviewed, Image Reviewed Assessment/Plan patient coming in with sbo surgery going to see the patient continue npo ng tube iv abx for now hydration rest as per the team
[2019-11-25] MEDS: PIPERACILLIN/TAZOB 3.375 GM 3.375 GM in DEXTROSE 5%-WATER - 50 ML IVPB SCH ×2 (09:34→17:02)
[2019-11-25] MEDS: HEPARIN NA (PORCINE) 5,000 UNITS/ML 1ML VIAL SQ SCH ×2 (09:35→22:00)
--- NOTE | 2019-11-25 09:54 | EKG ---
Test Reason : Blood Pressure : / mmHG Vent. Rate : 055 BPM Atrial Rate : 055 BPM P-R Int : 212 ms QRS Dur : 100 ms QT Int : 418 ms P-R-T Axes : 013 -33 002 degrees QTc Int : 399 ms SINUS BRADYCARDIA WITH 1ST DEGREE A-V BLOCK LEFT AXIS DEVIATION MODERATE VOLTAGE CRITERIA FOR LVH, MAY BE NORMAL VARIANT ABNORMAL ECG WHEN COMPARED WITH ECG OF 11-NOV-2019 18:04, [place] INTERVAL HAS INCREASED T WAVE INVERSION NOW EVIDENT IN INFERIOR LEADS NONSPECIFIC T WAVE ABNORMALITY NO LONGER EVIDENT IN LATERAL LEADS Confirmed by TITI ALEJO MD ([id number]) on 11/25/2019 9:53:55 AM Referred By: Confirmed By:TITI ALEJO MD
--- NOTE | 2019-11-25 15:09 | CON.GI ---
Consult Consult Specialty:: GI - History of Present Illness History of Present Illness: 64 yo male h/o htn, bilat inguinal hernia repair, recently admitted for bowel obstruction which was managed conservatively, and resolved, earlier this month, here today with c/o abd pain, constipation, x 1 day . c/o right sided abd pain, today noted to be periumbilical. no h/o other abd surgeries. denies dark stool, no melena, no h/o prior cirrhosis or gi bleeds. no f/c no cp no sob. NGT was inserted. Today patient hasno abdominal oain and has passed flatus - Past Medical History Cardio/Vascular: Yes: HTN - Past Surgical History Past Surgical History: Yes: Hernia Repair - Smoking History Smoking history: Never smoked Have you smoked in the past 12 months: No Home Medications - Allergies Allergies/Adverse Reactions: Allergies Allergy/AdvReac Type Severity Reaction Status Date / Time No Known Allergies Allergy Verified 11/24/19 16:16 - Home Medications Home Medications: Ambulatory Orders Aspirin 81 mg PO DAILY 12/13/17 Losartan/Hydrochlorothiazide 12/13/17 Nifedipine [Nifedipine ER] 60 mg PO DAILY 12/13/17 Physical Exam-GI Vital Signs: Vital Signs Temperature 98.2 F 11/25/19 08:57 Pulse Rate 60 11/25/19 03:20 Respiratory Rate 18 11/25/19 08:58 Blood Pressure 165/88 11/25/19 03:20 O2 Sat by Pulse Oximetry (%) 98 11/25/19 08:58 Constitutional: Yes: Well Nourished Eyes: Yes: Conjunctiva Clear HENT: Yes: Atraumatic Neck: Yes: Supple Cardiovascular: Yes: Regular Rate and Rhythm Respiratory: Yes: CTA Bilaterally ...Auscultate: Yes: Normoactive Bowel Sounds ...Palpate: Yes: Soft. No: Firm/Rigid, Guarding, Hepatomegaly, Mass, Pulsatile Mass, Splenomegaly Labs: CBC, BMP 11/25/19 06:45 11/25/19 06:45 INR, PTT INR 1.02 (0.83-1.09) 11/24/19 17:20 Problem List - Problems (1) SBO (small bowel obstruction) Assessment/Plan: --resolving R> advance diet as per surgery continue IV hydration Code(s): K56.609 - UNSP INTESTNL OBST, UNSP TO PARTIAL VERSUS COMPLETE OBST
--- NOTE | 2019-11-25 17:31 | CONSULT ---
Consult Consult Specialty:: Surgery Reason for Consultation:: SBO - History of Present Illness Chief Complaint: abdominal pain History of Present Illness: 64 y.o. male readmitted for recurrent abdominal pain, distention, w/ n & v. Admitted 2 weeks ago for partial SBO managed w/ bowel rest and IVF. Reports to history of bilateral inguinal and umibilical hernia repair in the past. CT A/P in ED showed recurrent SBO. NGT decompression done. Patient is now passing flatus and soft stool. Abdominal pain has resolved. - History Source History Provided By: Patient Limitations to Obtaining History: No Limitations - Past Medical History Cardio/Vascular: Yes: HTN - Past Surgical History Past Surgical History: Yes: Hernia Repair - Smoking History Smoking history: Never smoked Have you smoked in the past 12 months: No Home Medications - Allergies Allergies/Adverse Reactions: Allergies Allergy/AdvReac Type Severity Reaction Status Date / Time No Known Allergies Allergy Verified 11/24/19 16:16 - Home Medications Home Medications: Ambulatory Orders Aspirin 81 mg PO DAILY 12/13/17 Losartan/Hydrochlorothiazide 12/13/17 Nifedipine [Nifedipine ER] 60 mg PO DAILY 12/13/17 Review of Systems - Review of Systems Constitutional: reports: No Symptoms Eyes: reports: No Symptoms HENT: reports: No Symptoms Neck: reports: No Symptoms Cardiovascular: reports: No Symptoms Respiratory: reports: No Symptoms Gastrointestinal: reports: Abdominal Pain, Nausea, Vomiting Physical Exam Vital Signs: Vital Signs Temperature 98.1 F 11/25/19 15:57 Pulse Rate 68 11/25/19 15:57 Respiratory Rate 18 11/25/19 15:57 Blood Pressure 147/77 11/25/19 15:57 O2 Sat by Pulse Oximetry (%) 99 11/25/19 15:57 Constitutional: Yes: Well Nourished Eyes: Yes: Conjunctiva Clear HENT: Yes: Normocephalic Neck: Yes: Supple Cardiovascular: Yes: Regular Rate and Rhythm Respiratory: Yes: CTA Bilaterally Gastrointestinal: Yes: Soft, Abdomen, Obese, Tenderness (none), Other (unremarkable bilateral inguinal and umbilical hernia repair scars) ...Rectal Exam: Yes: Deferred Renal/: Yes: WNL Extremities: Yes: WNL Edema: No Neurological: Yes: Alert, Oriented Labs: CBC, BMP 11/25/19 06:45 11/25/19 06:45 Imaging - Results Chest X-ray: Pending (grade SBO) Cat Scan: Report Reviewed, Image Reviewed Problem List - Problems (1) SBO (small bowel obstruction) Assessment/Plan: Resolving SBO FUA in am continue NGT for full decompression and resolution of bowel edema IVF, GI, & DVT prophylaxis Code(s): K56.609 - UNSP INTESTNL OBST, UNSP TO PARTIAL VERSUS COMPLETE OBST
--- NOTE | 2019-11-25 17:47 | HP ---
Admitting History and Physical - Primary Care Physician PCP: Francine Simmons - Admission Chief Complaint: ABDOMINAL PAIN History of Present Illness: 64 yo male h/o htn, bilat inguinal hernia repair, recently admitted for bowel obstruction which was managed conservatively, and resolved, earlier this month,came yesterday c/o abd pain, constipation, x 1 day . c/o right sided abd pain, today noted to be periumbilical. no h/o other abd surgeries. denies dark stool, no melena, no h/o prior cirrhosis or gi bleeds. no f/c no cp no sob. NGT was inserted. - Past Medical History Cardiovascular: Yes: HTN - Past Surgical History Past Surgical History: Yes: Hernia Repair - Smoking History Smoking history: Never smoked Have you smoked in the past 12 months: No Home Medications - Allergies Allergies/Adverse Reactions: Allergies Allergy/AdvReac Type Severity Reaction Status Date / Time No Known Allergies Allergy Verified 11/24/19 16:16 - Home Medications Home Medications: Ambulatory Orders Aspirin 81 mg PO DAILY 12/13/17 Losartan/Hydrochlorothiazide 12/13/17 Nifedipine [Nifedipine ER] 60 mg PO DAILY 12/13/17 Physical Examination Vital Signs: Vital Signs Temperature 98.1 F 11/25/19 15:57 Pulse Rate 68 11/25/19 15:57 Respiratory Rate 18 11/25/19 15:57 Blood Pressure 147/77 11/25/19 15:57 O2 Sat by Pulse Oximetry (%) 99 11/25/19 15:57 Constitutional: Yes: No Distress HENT: Yes: Atraumatic Neck: Yes: Supple Cardiovascular: Yes: Regular Rate and Rhythm Respiratory: Yes: Rhonchi Gastrointestinal: Yes: Hypoactive Bowel Sounds Extremities: Yes: WNL Edema: No Neurological: Yes: Alert, Oriented Labs: CBC, BMP 11/25/19 06:45 11/25/19 06:45 Imaging - Results Chest X-ray: Report Reviewed Cat Scan: Report Reviewed Problem List - Problems (1) Abdominal pain Assessment/Plan: npo ivf prn pain meds iv protonix Code(s): R10.9 - UNSPECIFIED ABDOMINAL PAIN Qualifiers: Abdominal location: upper abdomen, unspecified Qualified Code(s): R10.10 - Upper abdominal pain, unspecified (2) SBO (small bowel obstruction) Assessment/Plan: ngt in place Code(s): K56.609 - UNSP INTESTNL OBST, UNSP TO PARTIAL VERSUS COMPLETE OBST (3) HTN (hypertension) Assessment/Plan: monitor on meds Code(s): I10 - ESSENTIAL (PRIMARY) HYPERTENSION Assessment/Plan Laboratory Tests 11/24/19 11/24/19 11/24/19 17:20 17:20 17:20 WBC 8.0 RBC 4.85 Hgb 14.1 Hct 42.4 MCV 87.5 MCH 29.1 MCHC 33.2 RDW 13.5 Plt Count 273 D MPV 9.0 Absolute Neuts (auto) 6.5 Neutrophils % 80.7 D Lymphocytes % 13.2 D Monocytes % 5.5 Eosinophils % 0.3 D Basophils % 0.3 Nucleated RBC % 0 PT with INR 12.00 INR 1.02 PTT (Actin FS) 29.9 Sodium 140 Potassium 4.0 Chloride 105 Carbon Dioxide 26 Anion Gap 10 BUN 21.0 H Creatinine 1.5 H Est GFR (CKD-EPI)AfAm 56.21 Est GFR (CKD-EPI)NonAf 48.50 Random Glucose 117 H Lactic Acid Calcium 10.5 H Magnesium 2.3 Total Bilirubin 1.0 AST 22 ALT 40 Alkaline Phosphatase 92 Troponin I Total Protein 9.2 H Albumin 4.8 Lipase 146 Urine Color Urine Appearance Urine pH Ur Specific [place] Urine Protein Urine Glucose (UA) Urine Ketones Urine Blood Urine Nitrite Urine Bilirubin Urine Urobilinogen Ur Leukocyte Esterase Urine WBC (Auto) Urine RBC (Auto) Urine Casts (Auto) U Epithel Cells (Auto) Urine Bacteria (Auto) Blood Type Antibody Screen 11/24/19 11/24/19 11/24/19 17:20 18:25 18:45 WBC RBC Hgb Hct MCV MCH MCHC RDW Plt Count MPV Absolute Neuts (auto) Neutrophils % Lymphocytes % Monocytes % Eosinophils % Basophils % Nucleated RBC % PT with INR INR PTT (Actin FS) Sodium Potassium Chloride Carbon Dioxide Anion Gap BUN Creatinine Est GFR (CKD-EPI)AfAm Est GFR (CKD-EPI)NonAf Random Glucose Lactic Acid 1.4 Calcium Magnesium Total Bilirubin AST ALT Alkaline Phosphatase Troponin I Total Protein Albumin Lipase Urine Color Dk yellow Urine Appearance Clear Urine pH 5.0 Ur Specific [place] 1.031 Urine Protein 1+ H Urine Glucose (UA) Negative Urine Ketones 1+ H Urine Blood Negative Urine Nitrite Negative Urine Bilirubin 2+ H Urine Urobilinogen 1.0 Ur Leukocyte Esterase Negative Urine WBC (Auto) 3 Urine RBC (Auto) 12 Urine Casts (Auto) 1 U Epithel Cells (Auto) 3 Urine Bacteria (Auto) 3 Blood Type O POSITIVE Antibody Screen Negative 11/24/19 11/25/19 11/25/19 22:05 06:45 06:45 WBC 6.5 RBC 4.38 Hgb 12.8 Hct 38.6 MCV 88.3 MCH 29.2 MCHC 33.1 RDW 13.5 Plt Count 222 MPV 9.2 Absolute Neuts (auto) 4.3 Neutrophils % 67.2 Lymphocytes % 22.0 D Monocytes % 9.3 Eosinophils % 1.0 D Basophils % 0.5 Nucleated RBC % 0 PT with INR INR PTT (Actin FS) Sodium 139 Potassium 3.7 Chloride 107 Carbon Dioxide 25 Anion Gap 7 L BUN 15.1 Creatinine 1.2 Est GFR (CKD-EPI)AfAm 73.62 Est GFR (CKD-EPI)NonAf 63.52 Random Glucose 100 Lactic Acid Calcium 9.1 Magnesium Total Bilirubin 1.2 H AST 20 ALT 31 Alkaline Phosphatase 77 Troponin I < 0.02 Total Protein 7.5 Albumin 3.8 Lipase Urine Color Urine Appearance Urine pH Ur Specific [place] Urine Protein Urine Glucose (UA) Urine Ketones Urine Blood Urine Nitrite Urine Bilirubin Urine Urobilinogen Ur Leukocyte Esterase Urine WBC (Auto) Urine RBC (Auto) Urine Casts (Auto) U Epithel Cells (Auto) Urine Bacteria (Auto) Blood Type Antibody Screen 11/25/19 06:48 WBC RBC Hgb Hct MCV MCH MCHC RDW Plt Count MPV Absolute Neuts (auto) Neutrophils % Lymphocytes % Monocytes % Eosinophils % Basophils % Nucleated RBC % PT with INR INR PTT (Actin FS) Sodium Potassium Chloride Carbon Dioxide Anion Gap BUN Creatinine Est GFR (CKD-EPI)AfAm Est GFR (CKD-EPI)NonAf Random Glucose Lactic Acid 1.0 Calcium Magnesium Total Bilirubin AST ALT Alkaline Phosphatase Troponin I Total Protein Albumin Lipase Urine Color Urine Appearance Urine pH Ur Specific [place] Urine Protein Urine Glucose (UA) Urine Ketones Urine Blood Urine Nitrite Urine Bilirubin Urine Urobilinogen Ur Leukocyte Esterase Urine WBC (Auto) Urine RBC (Auto) Urine Casts (Auto) U Epithel Cells (Auto) Urine Bacteria (Auto) Blood Type Antibody Screen Active Medications Generic Name Dose Route Start Last Admin Trade Name Freq PRN Reason Stop Dose Admin Acetaminophen 1,000 mg 11/25/19 00:43 Ofirmev Injection - IVPB 11/26/19 00:43 Q6H PRN PAIN Heparin Sodium (Porcine) 5,000 unit 11/25/19 10:00 11/25/19 09:35 Heparin - SQ 5,000 unit BID [facility]INA Administration Pantoprazole Sodium 80 mg/ 100 mls @ 10 mls/hr 11/24/19 20:00 11/25/19 17:05 Sodium Chloride IVPB 11/27/19 19:46 10 mls/hr Q10H [facility]INA Administration 8 MG/HR Lactated Ringer's 1,000 ml in 1,000 mls @ 100 mls/hr 11/25/19 00:45 11/25/19 15:30 Lactated Ringers Solution IV 100 mls/hr ASDIR RHINA Administration Piperacillin Sod/Tazobactam 50 mls @ 100 mls/hr 11/25/19 10:00 11/25/19 17:02 Sod 3.375 gm/ Dextrose IVPB 100 mls/hr Q8H-IV [facility]INA Administration Protocol Ondansetron HCl 4 mg 11/25/19 00:44 Zofran Injection IVPUSH Q6H PRN NAUSEA COVERING FOR DR SIMMONS TODAY
[2019-11-26] MEDS ORDERED: PIPERACILLIN/TAZOBACTAM 3.375 GM VIAL IVPB ONE (01:14)
[2019-11-26] MEDS ORDERED: DEXTROSE 5%-WATER - 50 ML IVPB ONE (01:15)
[2019-11-26] MEDS: PIPERACILLIN/TAZOB 3.375 GM 3.375 GM in DEXTROSE 5%-WATER - 50 ML IVPB SCH (01:20)
[2019-11-26] MEDS: LACTATED RINGERS SOLUTION 1,000 ML/1,000 ML INFUS.BAG IV SCH (01:33)
[2019-11-26] MEDS: PANTOPRAZOLE SODIUM 80 MG in SODIUM CHLORIDE 100 ML IVPB SCH ×3 (01:49→21:56)
--- NOTE | 2019-11-26 09:26 | PN ---
Progress Note, Physician History of Present Illness: feels better passing flatus abd pain resolved - Current Medication List Current Medications: Active Medications Heparin Sodium (Porcine) (Heparin -) 5,000 unit SQ BID [facility] Last Admin: 11/25/19 22:00 Dose: 5,000 unit Documented by: Pantoprazole Sodium 80 mg/ (Sodium Chloride) 100 mls @ 10 mls/hr IVPB Q10H [facility] Stop: 11/27/19 19:46 Last Admin: 11/26/19 01:49 Dose: 10 mls/hr Documented by: Lactated Ringer's (Lactated Ringers Solution) 1,000 ml in 1,000 mls @ 100 mls/hr IV ASDIR [facility] Last Admin: 11/26/19 01:33 Dose: 100 mls/hr Documented by: Piperacillin Sod/Tazobactam (Sod 3.375 gm/ Dextrose) 50 mls @ 100 mls/hr IVPB Q8H-IV [facility]INA; Protocol Last Admin: 11/26/19 01:20 Dose: 100 mls/hr Documented by: Ondansetron HCl (Zofran Injection) 4 mg IVPUSH Q6H PRN PRN Reason: NAUSEA - Objective Vital Signs: Vital Signs Temperature 98.6 F 11/26/19 06:00 Pulse Rate 74 11/26/19 06:00 Respiratory Rate 18 11/26/19 06:00 Blood Pressure 163/86 11/26/19 06:00 O2 Sat by Pulse Oximetry (%) 97 11/26/19 06:00 Constitutional: Yes: No Distress, Calm Cardiovascular: Yes: S1, S2 Respiratory: Yes: Regular, CTA Bilaterally Gastrointestinal: Yes: Normal Bowel Sounds, Soft Musculoskeletal: Yes: WNL Extremities: Yes: WNL Neurological: Yes: Alert, Oriented Psychiatric: Yes: Alert, Oriented Labs: CBC, BMP 11/25/19 06:45 11/25/19 06:45 INR, PTT INR 1.02 (0.83-1.09) 11/24/19 17:20 Assessment/Plan roblem List - Problems (1) Abdominal pain Code(s): R10.9 - UNSPECIFIED ABDOMINAL PAIN Qualifiers: Abdominal location: upper abdomen, unspecified Qualified Code(s): R10.10 - Upper abdominal pain, unspecified (2) SBO (small bowel obstruction) Code(s): K56.609 - UNSP INTESTNL OBST, UNSP TO PARTIAL VERSUS COMPLETE OBST (3) HTN (hypertension) Code(s): I10 - ESSENTIAL (PRIMARY) HYPERTENSION plan will stop abx and monitor abd xray
--- NOTE | 2019-11-26 09:53 | PN ---
Progress Note (short form) - Note Progress Note: Surgery: Pt states that he moved his bowels 5 times yesterday. No diarrhea or blood, soft stool with flatus. Vital Signs Period Temp Pulse Resp BP Sys/Pugh Pulse Ox Last 24 Hr 98.1 F-98.6 F 63-74 18-18 135-163/69-91 97-99 NGT: 100ml light green liquid GEN: A&0x3, NAD ABD: soft, non-distended, non-tender CBC, BMP 11/25/19 06:45 11/25/19 06:45 AXR: few gas distended bowel loops, no A/F levels A/P: 64 yo male with resolving SBO Dr. Navarrete removed NGT today and may begin clears, adv as tolerated F/u with Dr. Navarrete next week, will need outpatient Small bowel series.
[2019-11-26] MEDS: HEPARIN NA (PORCINE) 5,000 UNITS/ML 1ML VIAL SQ SCH ×2 (11:19→21:56)
--- NOTE | 2019-11-26 21:23 | PN ---
Progress Note, Physician - Current Medication List Current Medications: Active Medications Heparin Sodium (Porcine) (Heparin -) 5,000 unit SQ BID [facility] Last Admin: 11/26/19 11:19 Dose: 5,000 unit Documented by: Pantoprazole Sodium 80 mg/ (Sodium Chloride) 100 mls @ 10 mls/hr IVPB Q10H [facility] Stop: 11/27/19 19:46 Last Admin: 11/26/19 11:19 Dose: Not Given Documented by: Lactated Ringer's (Lactated Ringers Solution) 1,000 ml in 1,000 mls @ 100 mls/hr IV ASDIR [facility] Last Admin: 11/26/19 01:33 Dose: 100 mls/hr Documented by: Ondansetron HCl (Zofran Injection) 4 mg IVPUSH Q6H PRN PRN Reason: NAUSEA - Objective Vital Signs: Vital Signs Temperature 98.2 F 11/26/19 14:46 Pulse Rate 51 L 11/26/19 14:46 Respiratory Rate 18 11/26/19 14:46 Blood Pressure 168/91 11/26/19 14:46 O2 Sat by Pulse Oximetry (%) 100 11/26/19 14:46 Labs: CBC, BMP 11/25/19 06:45 11/25/19 06:45 INR, PTT INR 1.02 (0.83-1.09) 11/24/19 17:20
[2019-11-26] MEDS ORDERED: DEXTROSE 5%-0.45% SALINE 1,000 ML IV SCH (21:30)
[2019-11-27] MEDS ORDERED: amLODIPine BESYLATE 2.5 MG TABLET (FP) PO SCH (00:15)
[2019-11-27] MEDS ORDERED: NIFEdipine E.R 60 MG TABLET PO SCH (06:15)
[2019-11-27] MEDS ORDERED: LOSARTAN POTASSIUM 50 MG TABLET PO SCH (06:15)
[2019-11-27] MEDS: PANTOPRAZOLE SODIUM 80 MG in SODIUM CHLORIDE 100 ML IVPB SCH (08:44)
[2019-11-27] MEDS: HEPARIN NA (PORCINE) 5,000 UNITS/ML 1ML VIAL SQ SCH (09:11)
--- NOTE | 2019-11-27 11:36 | PN ---
Progress Note, Physician History of Present Illness: stable no new issues - Current Medication List Current Medications: Active Medications Heparin Sodium (Porcine) (Heparin -) 5,000 unit SQ BID [facility] Last Admin: 11/27/19 09:11 Dose: 5,000 unit Documented by: Pantoprazole Sodium 80 mg/ (Sodium Chloride) 100 mls @ 10 mls/hr IVPB Q10H [facility] Stop: 11/27/19 19:46 Last Admin: 11/27/19 08:44 Dose: 10 mls/hr Documented by: Losartan Potassium (Cozaar -) 50 mg PO BID [facility] Last Admin: 11/27/19 06:14 Dose: 50 mg Documented by: Nifedipine (Procardia Xl -) 60 mg PO DAILY [facility] Last Admin: 11/27/19 06:14 Dose: 60 mg Documented by: Ondansetron HCl (Zofran Injection) 4 mg IVPUSH Q6H PRN PRN Reason: NAUSEA - Objective Vital Signs: Vital Signs Temperature 97.8 F 11/27/19 09:14 Pulse Rate 92 H 11/27/19 09:14 Respiratory Rate 18 11/27/19 09:14 Blood Pressure 154/82 11/27/19 09:14 O2 Sat by Pulse Oximetry (%) 99 11/27/19 09:14 Constitutional: Yes: No Distress, Calm Cardiovascular: Yes: S1, S2 Respiratory: Yes: Regular, CTA Bilaterally Gastrointestinal: Yes: Normal Bowel Sounds, Soft Musculoskeletal: Yes: WNL Extremities: Yes: WNL Neurological: Yes: Alert, Oriented Psychiatric: Yes: Alert, Oriented Labs: CBC, BMP 11/25/19 06:45 11/25/19 06:45 INR, PTT INR 1.02 (0.83-1.09) 11/24/19 17:20 Assessment/Plan roblem List - Problems (1) Abdominal pain Code(s): R10.9 - UNSPECIFIED ABDOMINAL PAIN Qualifiers: Abdominal location: upper abdomen, unspecified Qualified Code(s): R10.10 - Upper abdominal pain, unspecified (2) SBO (small bowel obstruction) Code(s): K56.609 - UNSP INTESTNL OBST, UNSP TO PARTIAL VERSUS COMPLETE OBST (3) HTN (hypertension) Code(s): I10 - ESSENTIAL (PRIMARY) HYPERTENSION plan continue current mgmt rest as per the team
--- NOTE | 2019-11-27 12:11 | PN ---
Progress Note, Physician Chief Complaint: SBO History of Present Illness: Tolerating clear liquids Continues to pass flatus and denies abdominal pain - Current Medication List Current Medications: Active Medications Heparin Sodium (Porcine) (Heparin -) 5,000 unit SQ BID [facility] Last Admin: 11/27/19 09:11 Dose: 5,000 unit Documented by: Losartan Potassium (Cozaar -) 50 mg PO BID [facility] Last Admin: 11/27/19 06:14 Dose: 50 mg Documented by: Nifedipine (Procardia Xl -) 60 mg PO DAILY [facility] Last Admin: 11/27/19 06:14 Dose: 60 mg Documented by: Ondansetron HCl (Zofran Injection) 4 mg IVPUSH Q6H PRN PRN Reason: NAUSEA - Objective Vital Signs: Vital Signs Temperature 97.8 F 11/27/19 09:14 Pulse Rate 92 H 11/27/19 09:14 Respiratory Rate 18 11/27/19 09:14 Blood Pressure 154/82 11/27/19 09:14 O2 Sat by Pulse Oximetry (%) 99 11/27/19 09:14 Constitutional: Yes: No Distress Gastrointestinal: Yes: Soft, Abdomen, Obese, Tenderness (none) Labs: CBC, BMP 11/25/19 06:45 11/25/19 06:45 INR, PTT INR 1.02 (0.83-1.09) 11/24/19 17:20 Problem List - Problems (1) SBO (small bowel obstruction) Assessment/Plan: resolved SBO Advance to regular diet d/c planning f/u at office in one week for further OP GI W/U Code(s): K56.609 - UNSP INTESTNL OBST, UNSP TO PARTIAL VERSUS COMPLETE OBST
[2019-11-27 14:08] VITALS: BP 155/78; PULSE 84; TEMP 98.9
== END 2019-11-27 18:21 | disposition home or self-care (01) | DRG 247 ==
LOC: JER 16:11 → JERBED 22:20 → J7W 11-25 03:22
PROVIDERS: ADMIT Internal Medicine; ATTEND Internal Medicine
PROC: 0D9670Z Drainage of Stomach with Drainage Device, Via Natural or Artificial Opening (ICD-10-PCS; principal; 2019-11-25)
DX: K56.609 Unspecified intestinal obstruction, unspecified as to partial versus complete obstruction (principal); R10.10 Upper abdominal pain, unspecified; I10 Essential (primary) hypertension; E66.9 Obesity, unspecified; Z68.30 Body mass index [BMI] 30.0-30.9, adult; K92.0 Hematemesis
CPT/HCPCS: 36415; 71045-TC-FY; 74019-TC-FY; 74177-TC; 80053; 81003; 83605; 83690; 83735; 84484; 85025; 85610; 85730; 86850; 86900; 86901; 93005; 93010; 99285-25; J0131; J1644; U0003

== ENCOUNTER 2020-07-11 03:06 | Emergency (ER) | payer OTHER ==
[2020-07-11 03:19] VITALS: PULSE 91; TEMP 98.6; BMI 27.3
[2020-07-11 03:38] VITALS: BP 146/79
[2020-07-11 03:44] LABS: EPI CELLS 6 /uL (0-25.1); HYALINE CASTS 1 /uL (0-3.1); URINE APPEARANCE CLEAR; URINE BACTERIA 11 /uL (0-1359); URINE BILIRUBIN NEGATIVE (NEGATIVE); URINE COLOR YELLOW; URINE GLUCOSE (UA) NEGATIVE (NEGATIVE); URINE KETONE NEGATIVE (NEGATIVE); URINE LEUK ESTERASE TRACE (NEGATIVE); URINE NITRITE NEGATIVE (NEGATIVE); URINE PROTEIN 1+ (NEGATIVE); URINE RBC 528 /uL (0-23.9); URINE UROBILINOGEN 0.2 mg/dL (0.2-1.0); URINE WBC 48 /uL (0-25.8)
[2020-07-11 03:59] LABS: BASO % 0.9 % (0-2.0); HEMATOCRIT 37.5 % (35.4-49); HEMOGLOBIN 12.5 GM/dL (11.7-16.9); LYMPH % 13.2 % (8-40); MCH 29.2 pg (25.7-33.7); MCHC 33.3 g/dl (32.0-35.9); MEAN CELL VOLUME 87.8 fl (80-96); MEAN PLT VOLUME 8.6 fl (7.5-11.1); MONO % 4.4 % (3.8-10.2); NEUT % 80.5 % (42.8-82.8); PLATELET COUNT 260 K/MM3 (134-434); RBC 4.26 M/mm3 (4.00-5.60); RDW 12.5 % (11.9-15.9); WHITE BLOOD COUNT 5.6 K/mm3 (4.0-10.0)
[2020-07-11 04:40] LABS: CALCIUM 8.9 mg/dL (8.5-10.1)
[2020-07-11 04:41] LABS: BLOOD UREA NITROGEN 16.3 mg/dL (7-18)
[2020-07-11 04:45] LABS: CREATININE 1.2 mg/dL (0.55-1.3)
== END 2020-07-11 05:04 | disposition home or self-care (01) ==
LOC: JER 03:06
DX: R33.9 Retention of urine, unspecified (principal)
CPT/HCPCS: 36415; 80048; 81003; 85025; 87086; 99283-25

== ENCOUNTER 2022-01-27 17:04 | Emergency (ER) | payer OTHER ==
[2022-01-27 17:23] VITALS: BP 154/81; PULSE 85; RESP 18; TEMP 99.4; BMI 31.1
[2022-01-27] MEDS ORDERED: IBUPROFEN 600 MG TABLET (FP) PO ONE ×2 (18:05→19:26)
== END 2022-01-27 19:38 | disposition home or self-care (01) ==
LOC: JER 17:04
DX: J09.X2 Influenza due to identified novel influenza A virus with other respiratory manifestations (principal); R51.9 Headache, unspecified; R05.1 Acute cough
CPT/HCPCS: 0241U-QW; 99283-25

== ENCOUNTER 2023-02-03 16:04 | Emergency (ER) | payer OTHER ==
[2023-02-03 16:33] VITALS: BP 130/67; PULSE 98; RESP 16; TEMP 98.3; BMI 30.2
[2023-02-03] MEDS ORDERED: KETOROLAC TROMETHAMINE 30 MG/1 ML VIAL IM ONE (17:56)
[2023-02-03] MEDS ORDERED: KETOROLAC TROMETHAMINE 30 MG/1 ML VIAL ONE (18:00)
== END 2023-02-03 18:19 | disposition home or self-care (01) ==
LOC: JERFT 16:04
PROC: 3E0233Z Introduction of Anti-inflammatory into Muscle, Percutaneous Approach (ICD-10-PCS; principal; 2023-02-03)
DX: K08.89 Other specified disorders of teeth and supporting structures (principal)
CPT/HCPCS: 96372; 99284-25

== ENCOUNTER 2024-08-11 09:14 | Day surgery (SDC) | payer OTHER ==
[2024-08-09 14:15] VITALS: BMI 30.4
[2024-08-11] MEDS ORDERED: CYCLOPENTOLATE 2% OPHTH SOLN 2 ML BOTTLE ONE (09:25)
[2024-08-11] MEDS ORDERED: CIPROFLOXACIN 0.3% EYE DROPS 5 ML BOTTLE ONE (09:25)
[2024-08-11] MEDS ORDERED: PHENYLEPHRINE 2.5% OPTHALMIC DROP 2ML BOTTLE ONE (09:25)
[2024-08-11] MEDS ORDERED: TROPICAMIDE 1% 3 ML EYE DROPS ONE (09:25)
[2024-08-11] MEDS: PHENYLEPHRINE 2.5% OPHTH SOLN 15 ML BOTTLE OS ONE ×3 (09:40→09:50)
[2024-08-11] MEDS: TROPICAMIDE 1% OPHTH SOLN 15 ML BOTTLE OS ONE ×3 (09:40→09:50)
[2024-08-11] MEDS: CIPROFLOXACIN 0.3% EYE DROPS 5 ML BOTTLE OS ONE ×3 (09:40→09:50)
[2024-08-11] MEDS: CYCLOPENTOLATE 2% OPHTH SOLN 2 ML BOTTLE OS ONE ×3 (09:40→09:50)
[2024-08-11] MEDS ORDERED: MIDAZOLAM HCL 2 MG/2 ML SINGLE DOSE VIAL ONE (09:47)
[2024-08-11] MEDS ORDERED: EPINEPHrine 1:1000 P/F - 1 MG/ML AMP ONE (10:35)
[2024-08-11] MEDS ORDERED: NEO/POLYMYX B SULF/DEXAMETH OPHTHALMIC 5ML BOTTLE ONE (10:35)
[2024-08-11] MEDS ORDERED: TETRACAINE 0.5% OPHTH SOLN 2 ML BOTTLE ONE (10:35)
[2024-08-11] MEDS ORDERED: CARBACHOL 0.01% INTRA-OCULAR 1.5 ML VIAL ONE (10:35)
[2024-08-11] MEDS ORDERED: LIDOCAINE 1% P/F 10 MG/ML VIAL ONE (10:35)
[2024-08-11] MEDS ORDERED: BSS (NA/CA/MG/K) BALANCED SALT SOLUTION OPHTH SOLN 15 ML BOTTLE ONE (10:35)
[2024-08-11 12:12] VITALS: RESP 18; TEMP 98
[2024-08-11 12:15] VITALS: BP 154/74; PULSE 62
== END 2024-08-11 12:15 | disposition home or self-care (01) ==
LOC: FASU 09:14
PROVIDERS: ATTEND Ophthalmology
PROC: 08RK3JZ Replacement of Left Lens with Synthetic Substitute, Percutaneous Approach (ICD-10-PCS; principal; 2024-08-11 11:17)
DX: H26.8 Other specified cataract (principal)
CPT/HCPCS: 66984; V2632

== ENCOUNTER 2024-08-25 08:10 | Day surgery (SDC) | payer OTHER ==
[2024-08-23 14:22] VITALS: BMI 30.4
[2024-08-25] MEDS: CYCLOPENTOLATE 2% OPHTH SOLN 2 ML BOTTLE ONE (08:50)
[2024-08-25] MEDS: PHENYLEPHRINE 2.5% OPTHALMIC DROP 2ML BOTTLE ONE (08:50)
[2024-08-25] MEDS: TROPICAMIDE 1% 3 ML EYE DROPS ONE (08:50)
[2024-08-25] MEDS: CIPROFLOXACIN 0.3% EYE DROPS 5 ML BOTTLE ONE (08:50)
[2024-08-25 08:52] VITALS: RESP 16
[2024-08-25] MEDS ORDERED: TETRACAINE 0.5% OPHTH SOLN 2 ML BOTTLE ONE (09:41)
[2024-08-25] MEDS ORDERED: CARBACHOL 0.01% INTRA-OCULAR 1.5 ML VIAL ONE (09:41)
[2024-08-25] MEDS ORDERED: BSS (NA/CA/MG/K) BALANCED SALT SOLUTION OPHTH SOLN 15 ML BOTTLE ONE (09:41)
[2024-08-25] MEDS ORDERED: LIDOCAINE 1% P/F 10 MG/ML VIAL ONE (09:41)
[2024-08-25] MEDS ORDERED: EPINEPHrine 1:1000 P/F - 1 MG/ML AMP ONE (09:41)
[2024-08-25] MEDS ORDERED: NEO/POLYMYX B SULF/DEXAMETH OPHTHALMIC 5ML BOTTLE ONE (09:41)
[2024-08-25] MEDS ORDERED: MIDAZOLAM HCL 2 MG/2 ML SINGLE DOSE VIAL ONE (10:32)
[2024-08-25 11:48] VITALS: TEMP 96.6
[2024-08-25 11:52] VITALS: BP 137/73; PULSE 64
== END 2024-08-25 11:40 | disposition home or self-care (01) ==
LOC: FASU 08:10
PROVIDERS: ATTEND Ophthalmology
PROC: 08RJ3JZ Replacement of Right Lens with Synthetic Substitute, Percutaneous Approach (ICD-10-PCS; principal; 2024-08-25 10:36)
DX: H26.8 Other specified cataract (principal)